=== PATIENT | male | born 1960 ===

== ENCOUNTER 2024-05-23 11:20 | Day surgery (SDC) | payer OTHER ==
[2024-05-22 14:37] LABS: Absolute Basophils 0.1 K/uL (0-0.5); Absolute Eosinophils 0.1 K/uL (0-0.5); Absolute Monocytes 1.3 K/uL (0.1-1.3); Absolute Neutrophil 7.9 K/uL (1.8-8.0); Basophils % 0.8 % (0-1.3); Eosinophils % 0.8 % (0-4.4); Lymphocytes % 17.9 % (15.3-44.8); MCH 33.2 pg (27.0-35.0); MCV 94.8 fL (80-100); MPV 7.2 fL (7.6-11.3); Monocytes % 11.2 % (3.3-12.3); Neutrophils % 69.3 % (41.7-73.7); Nucleated Red Blood Cells % 0.1 % (0-0); Platelets 312 thou/uL (152-406); RBC Red Blood Cell Count 4.54 M/uL (4.33-5.43)
[2024-05-22 14:49] LABS: PT Prothrombin Time 10.3 SECONDS (10-13.0); PTT, Activated Partial Thromb 29.8 SECONDS (27.2-37.4); Protime INR 0.9
[2024-05-22 14:51] LABS: Anion Gap 11.3 mEq/L (5.0-15.0); Potassium 4.3 mEq/L (3.5-5.1)
[2024-05-23] MEDS ORDERED: Ringers Lactate 1,000 ML IV ONE (11:56)
[2024-05-23] MEDS ORDERED: LIDOCAINE 1% MPF 5 ML VIAL ONE (13:22)
[2024-05-23] MEDS ORDERED: MIDAZOLAM HCL 2 MG/2 ML INJ ONE (13:22)
[2024-05-23] MEDS ORDERED: propofoL 200 MG/20 ML VIAL IV ONE (13:22)
[2024-05-23] MEDS ORDERED: FENTANYL CITR 100 MCG/2 ML ONE (13:22)
[2024-05-23] MEDS ORDERED: ONDANSETRON 4 MG/2 ML VIAL ONE (13:30)
[2024-05-23] MEDS: CEFAZOLIN SODIUM 2 GM/VIAL ONE (13:45)
[2024-05-23] MEDS ORDERED: KETOROLAC 30 MG/ML INJ ONE (13:46)
[2024-05-23] MEDS ORDERED: GLYCOPYRROLATE 0.2 MG/ML SYR ONE ×3 (13:49→14:40)
[2024-05-23] MEDS: LIDOCAINE HCL/EPINEPHRINE 20 ML MDV ONE (13:56)
[2024-05-23] MEDS ORDERED: ROCURONIUM 50 MG/5 ML VIAL IV ONE (14:04)
[2024-05-23] MEDS: Ringers Lactate 1,000 ML IV ONE (14:29)
[2024-05-23] MEDS ORDERED: NEOSTIGMINE 1 MG/ML -10 ML VIAL ONE (14:40)
--- NOTE | 2024-05-23 14:47 | P.OP ---
Preoperative diagnosis: LEFT Inguinal Hernia Postoperative diagnosis: LEFT Inguinal Hernia Primary procedure: Open LEFT inguinal hernia repair with mesh Anesthesia: GETA + Local Estimated blood loss: <5cc Specimen: <5cc Findings: cord lipoma, direct hernia Complications: None Implants: Medium Bard Plug and Patch Hernia Repair mesh Transferred to: Recovery Room Condition: Good
--- NOTE | 2024-05-23 15:25 | OP ---
Date of Procedure: 05/23/2024 Surgeon: Wojciech Gilbert MD, Preoperative Diagnosis: Left inguinal hernia. Postoperative Diagnosis: Left inguinal hernia. Procedure Performed: Open left inguinal hernia repair with mesh. Anesthesia: General endotracheal plus 0.25% Marcaine with epinephrine. Estimated Blood Loss: 5 cc. Specimen: Cord lipoma. Findings: Cord lipoma and indirect inguinal hernia with thin external oblique aponeurosis. Complications: None. Implants: Bard medium Prolene patch hernia repair system. The patient was transferred to recovery room in good condition. Procedure In Detail: After informed consent was obtained, patient was brought to the operating room, prepped and draped in the usual sterile fashion after adequate anesthesia achieved. I anesthetized the area of the left inguinal region down to subcutaneous tissues. I then used a 15 blade to dissect down through Camper fat and Anatoly fascia to expose the external oblique aponeurosis. This was cut down and opened sharply using a 15 blade and ultimately it was opened medial and laterally using Genie enbaum scissors. The spermatic cord and structures were encircled at this point. There was a large amount of preperitoneal fat area, which was sent off for pathologic examination after being ligated f ree from the spermatic cord structures, sent off. At this point, the hernia sac was dissected free f rom the spermatic cord structures, returned to the normal preperitoneal space. After imbricating the hernia sac at this point, I deployed a medium Bard PerFix plug into the preperitoneal space, deploye d it at this point and secured circumferentially around using 2-0 PDS sutures with good approximation of the tissues. I then placed a Bard hernia patch after sizing appropriately and trimming the mesh down the pubic tubercle to the medial aspect to reconstitute the deep inguinal ring. It was secured circumferentially around the pubic tubercle with 2-0 PDS in an interrupted fashion as well as to the undersurface of the inguinal ligament and the internal oblique aponeurosis. The deep inguinal ring w as reconstituted at this point with same said 2-0 PDS suture. At this point, the area was copiously irrigated. The external oblique aponeurosis was closed using 3-0 Vicryl in a running fashion to appr oximate the tissues. The are was copiously irrigated once again. Deep dermal plane was closed with the same said 3-0 Vicryl suture and skin was closed with a 4-0 Monocryl in a running fashion. Dermab ond was placed over top. The patient tolerated the procedure without incident or complication, trans ferred to PACU in good condition. All counts correct at the end of the case. XU/SHABNAM Voice ID: [id number] Report ID: [id number]
[2024-05-23] MEDS: HYDROCODONE/APAP 7.5/325 MG TAB ONE (16:02)
[2024-05-23 17:27] VITALS: BP 116/50; TEMP 97.2; O2SAT 94
== END 2024-05-23 16:50 | disposition home or self-care (01) ==
LOC: OR 11:20
PROVIDERS: ATTEND Surgery
PROC: 0YU60JZ Supplement Left Inguinal Region with Synthetic Substitute, Open Approach (ICD-10-PCS; principal; 2024-05-23 13:15)
DX: K40.90 Unilateral inguinal hernia, without obstruction or gangrene, not specified as recurrent (principal)
CPT/HCPCS: 85025; 80048; 36415; 85610; 85730; 49505; J2704; J2710; J2003; J2250; J3010; J2405; J7120 ×2; 88302